=== PATIENT | male | born 1965 | race Caucasian/White ===

== ENCOUNTER 2022-04-09 10:48 | Emergency (ER) | payer SELFPAY ==
[2022-04-09] MEDS ORDERED: amLODIPine 5 MG Tab PO ONE (11:29)
[2022-04-09] MEDS ORDERED: Lisinopril 10 MG Tab PO ONE (11:30)
[2022-04-09] MEDS ORDERED: cloNIDine 0.1 MG Tab PO ONE (12:39)
[2022-04-09 12:48] LABS: POTASSIUM,K 4.1 mmol/L (3.5-5.1)
[2022-04-09 13:24] LABS: CARBON DIOXIDE,CO2 27.9 mmol/L (21.0-32.0)
== END 2022-04-09 14:07 | disposition home or self-care (01) ==
LOC: MW.ED 10:48
DX: E11.65 Type 2 diabetes mellitus with hyperglycemia (principal); I10 Essential (primary) hypertension; E78.00 Pure hypercholesterolemia, unspecified; F17.210 Nicotine dependence, cigarettes, uncomplicated; Z88.0 Allergy status to penicillin; Z91.040 Latex allergy status; Z79.82 Long term (current) use of aspirin; Z79.899 Other long term (current) drug therapy; Z79.84 Long term (current) use of oral hypoglycemic drugs
CPT/HCPCS: 36415; 80053; 81001; 83735; 84484; 85025; 93005; 99283; A9270

== ENCOUNTER 2024-03-23 11:49 | Emergency (ER) | payer SELFPAY ==
[2024-03-23 12:16] LABS: HEMATOCRIT 46.4 % (42.0-52.0); HEMOGLOBIN 16.3 g/dL (14.0-18.0); LYMPHOCYTES PERCENT AUTO 25.4 % (24.0-44.0); MEAN CORPUSCULAR HEMOGLOBIN 30.2 pg (28.0-32.0); MEAN CORPUSCULAR HGB CONC 35.1 g/dL (32.0-36.0); MEAN CORPUSCULAR VOLUME 85.9 fL (83.0-99.0); MEAN PLATELET VOLUME 9.5 fL (9.4-12.4); NEUTROPHILS PERCENT AUTO 64.7 % (41.0-71.0); PLATELET COUNT,PLT 247 K/uL (150-400); WHITE BLOOD CELL COUNT,WBC 9.34 K/uL (3.9-11.3)
[2024-03-23 12:17] LABS: BASOPHILS ABSOLUTE AUTO 0.06 K/uL (0.00-0.20); BASOPHILS PERCENT AUTO 0.6 % (0.0-1.0); EOSINOPHILS ABSOLUTE AUTO 0.24 K/uL (0.00-0.45); EOSINOPHILS PERCENT AUTO 2.6 % (0.0-6.0); IMMATURE GRAN ABSOLUTE AUTO 0.05 K/uL (0.00-0.05); IMMATURE GRAN PERCENT AUTO 0.5 % (0.0-0.4); LYMPHOCYTES ABSOLUTE AUTO 2.37 K/uL (1.00-4.80); MONOCYTES ABSOLUTE AUTO 0.58 K/uL (0.00-0.80); MONOCYTES PERCENT AUTO 6.2 % (0.0-8.0); NEUTROPHILS ABSOLUTE AUTO 6.04 K/uL (1.80-7.70)
[2024-03-23] MEDS: Labetalol 100 MG/20 ML MDV IVPUSH STA (12:26)
[2024-03-23 12:35] LABS: APPEARANCE,URINE CLEAR; BILIRUBIN,URINE NEGATIVE (NEGATIVE); COLOR,URINE YELLOW; GLUCOSE,URINE 100 mg/dL (NEGATIVE); KETONES,URINE NEGATIVE (NEGATIVE); LEUKOCYTE ESTERASE,URINE NEGATIVE (NEGATIVE); NITRITE,URINE NEGATIVE (NEGATIVE); OCCULT BLOOD,URINE NEGATIVE (NEGATIVE); PH,URINE 5.5 (5.0-8.0); PROTEIN,URINE 100 mg/dL (NEGATIVE); UROBILINOGEN,URINE 0.2 EU/dL (<2.0)
[2024-03-23 12:49] LABS: INR 0.98 (0.86-1.11)
[2024-03-23 12:50] LABS: A/G RATIO 1.1 (0.9-1.6); ALBUMIN 3.9 g/dL (3.4-5.0); BILIRUBIN TOTAL 0.7 mg/dL (0.2-1.0); CALCIUM 9.4 mg/dL (8.5-10.1); CARBON DIOXIDE,CO2 31.1 mmol/L (21.0-32.0); CREATININE 1.2 mg/dL (0.8-1.3); EST CRCL DRUG DOSING (CG) 68.74 mL/min; POTASSIUM,K 3.8 mmol/L (3.5-5.1); PROTEIN TOTAL,TP 7.6 g/dL (6.4-8.2)
[2024-03-23 12:55] LABS: MAGNESIUM 1.8 mg/dL (1.8-2.4)
[2024-03-23 13:18] LABS: BACTERIA,URINE RARE (NEGATIVE); EPITHELIAL CELLS,URINE RARE (NONE-FEW); RBC,URINE 0-2 (0-2/HPF); WBC,URINE 0-2 (0-5/HPF)
[2024-03-23 13:20] LABS: HEMOGLOBIN A1C 9.2 %
[2024-03-23] MEDS: Lisinopril 10 MG Tab PO STA (13:52)
== END 2024-03-23 15:17 | disposition left against medical advice (07) ==
LOC: MW.ED 11:49
DX: I10 Essential (primary) hypertension (principal); E11.9 Type 2 diabetes mellitus without complications; Z75.8 Other problems related to medical facilities and other health care; Z86.16 Personal history of COVID-19; Z91.040 Latex allergy status; Z88.0 Allergy status to penicillin
CPT/HCPCS: 36415; 70450; 71046; 80053; 81001; 83036; 83690; 83735; 84484; 85025; 85610; 93005; 96374; 99284; A9270; J1920; 93010

== ENCOUNTER 2024-03-23 17:03 | Observation (INO) | payer SELFPAY ==
[2024-03-23] MEDS ORDERED: Sodium Chloride 0.9% 10 ML Syringe FLUSH PRN (17:57)
[2024-03-23] MEDS ORDERED: Sodium Chloride 0.9% 2.5 ML Syringe FLUSH PRN (17:57)
[2024-03-23 18:26] LABS: BASOPHILS ABSOLUTE AUTO 0.06 K/uL (0.00-0.20); BASOPHILS PERCENT AUTO 0.6 % (0.0-1.0); EOSINOPHILS ABSOLUTE AUTO 0.18 K/uL (0.00-0.45); EOSINOPHILS PERCENT AUTO 1.8 % (0.0-6.0); HEMATOCRIT 42.8 % (42.0-52.0); HEMOGLOBIN 15.4 g/dL (14.0-18.0); IMMATURE GRAN ABSOLUTE AUTO 0.04 K/uL (0.00-0.05); IMMATURE GRAN PERCENT AUTO 0.4 % (0.0-0.4); LYMPHOCYTES ABSOLUTE AUTO 2.13 K/uL (1.00-4.80); LYMPHOCYTES PERCENT AUTO 21.2 % (24.0-44.0); MEAN CORPUSCULAR HEMOGLOBIN 30.6 pg (28.0-32.0); MEAN CORPUSCULAR VOLUME 85.1 fL (83.0-99.0); MEAN PLATELET VOLUME 9.8 fL (9.4-12.4); NEUTROPHILS ABSOLUTE AUTO 7.02 K/uL (1.80-7.70); PLATELET COUNT,PLT 254 K/uL (150-400); RED BLOOD CELL COUNT 5.03 M/uL (4.52-5.90); WHITE BLOOD CELL COUNT,WBC 10.03 K/uL (3.9-11.3)
[2024-03-23] MEDS ORDERED: Bisacodyl 5 MG Tab PO PRN (18:40)
[2024-03-23] MEDS ORDERED: Ondansetron 4 MG Tab.DIS PO PRN (18:40)
[2024-03-23] MEDS ORDERED: Acetaminophen 325 MG Tab PO PRN (18:40)
[2024-03-23] MEDS ORDERED: Polyethylene Glycol 3350 Powder 17 GM Packet PO PRN (18:40)
[2024-03-23] MEDS ORDERED: Glucagon,Human Recombinant 1 MG Vial IM PRN (18:44)
[2024-03-23] MEDS ORDERED: 50% Dextrose in Water 50 ML Syringe IVPUSH PRN (18:44)
[2024-03-23] MEDS ORDERED: Labetalol 100 MG/20 ML MDV IVPUSH SCH (18:45)
[2024-03-23 18:55] LABS: CARBON DIOXIDE,CO2 28.2 mmol/L (21.0-32.0); CREATININE 1.2 mg/dL (0.8-1.3); EST CRCL DRUG DOSING (CG) 68.74 mL/min; POTASSIUM,K 3.6 mmol/L (3.5-5.1)
[2024-03-23] MEDS: Acetaminophen 500 MG Tab PO STA (19:23)
[2024-03-23] MEDS: Ibuprofen 800 MG Tab PO STA (20:31)
[2024-03-23] MEDS: Enoxaparin 40 MG/0.4 ML Syringe SUBCUT SCH (20:32)
[2024-03-23 21:24] LABS: CHOLESTEROL HDL 43 mg/dL (40-60); CHOLESTEROL TOTAL 297 mg/dL (50-200); TSH ULTRASENSITIVE 1.53 uIU/mL (0.36-3.74)
[2024-03-23 21:26] LABS: TRIGLYCERIDES 560 mg/dL (0-200)
[2024-03-23] MEDS: Labetalol 100 MG/20 ML MDV IVPUSH PRN (21:27)
[2024-03-23] MEDS: Insulin Aspart 100 Units/ML 3 ML Pen SUBCUT SCH (21:27)
[2024-03-23] MEDS: Lisinopril 10 MG Tab PO ONE (21:27)
[2024-03-24] MEDS: Melatonin 3 MG Tab PO PRN (00:04)
[2024-03-24 05:56] LABS: BASOPHILS ABSOLUTE AUTO 0.03 K/uL (0.00-0.20); BASOPHILS PERCENT AUTO 0.4 % (0.0-1.0); EOSINOPHILS ABSOLUTE AUTO 0.22 K/uL (0.00-0.45); EOSINOPHILS PERCENT AUTO 2.7 % (0.0-6.0); HEMATOCRIT 38.7 % (42.0-52.0); HEMOGLOBIN 13.5 g/dL (14.0-18.0); IMMATURE GRAN ABSOLUTE AUTO 0.05 K/uL (0.00-0.05); IMMATURE GRAN PERCENT AUTO 0.6 % (0.0-0.4); LYMPHOCYTES PERCENT AUTO 42.2 % (24.0-44.0); MEAN CORPUSCULAR HEMOGLOBIN 30.3 pg (28.0-32.0); MEAN CORPUSCULAR HGB CONC 34.9 g/dL (32.0-36.0); MEAN CORPUSCULAR VOLUME 86.8 fL (83.0-99.0); MEAN PLATELET VOLUME 9.9 fL (9.4-12.4); MONOCYTES ABSOLUTE AUTO 0.56 K/uL (0.00-0.80); NEUTROPHILS ABSOLUTE AUTO 3.79 K/uL (1.80-7.70); NEUTROPHILS PERCENT AUTO 47.1 % (41.0-71.0); PLATELET COUNT,PLT 227 K/uL (150-400); RED BLOOD CELL COUNT 4.46 M/uL (4.52-5.90); WHITE BLOOD CELL COUNT,WBC 8.05 K/uL (3.9-11.3)
[2024-03-24 06:24] LABS: A/G RATIO 0.9 (0.9-1.6); BILIRUBIN TOTAL 0.5 mg/dL (0.2-1.0); CALCIUM 8.6 mg/dL (8.5-10.1); CARBON DIOXIDE,CO2 30.8 mmol/L (21.0-32.0); CREATININE 1.3 mg/dL (0.8-1.3); EST CRCL DRUG DOSING (CG) 63.45 mL/min; POTASSIUM,K 3.5 mmol/L (3.5-5.1); PROTEIN TOTAL,TP 6.2 g/dL (6.4-8.2)
[2024-03-24] MEDS ORDERED: Insulin Aspart 100 Units/ML 3 ML Pen SUBCUT SCH (07:30)
[2024-03-24] MEDS: Lisinopril 10 MG Tab PO SCH (08:11)
[2024-03-24] MEDS ORDERED: Lisinopril 10 MG Tab PO SCH (09:00)
[2024-03-24] MEDS: atorvaSTATin 40 MG Tab PO SCH (09:44)
== END 2024-03-24 14:20 | disposition home or self-care (01) ==
LOC: MW.ED 17:03 → MW.MS 17:58
PROVIDERS: ADMIT Family Medicine; ATTEND Family Medicine
DX: I16.0 Hypertensive urgency (principal); E11.9 Type 2 diabetes mellitus without complications; I10 Essential (primary) hypertension; E78.00 Pure hypercholesterolemia, unspecified; F17.210 Nicotine dependence, cigarettes, uncomplicated; Z79.84 Long term (current) use of oral hypoglycemic drugs; Z79.899 Other long term (current) drug therapy; Z91.040 Latex allergy status; Z88.0 Allergy status to penicillin
CPT/HCPCS: 36415; 80048; 80053; 80061; 82947; 84443; 85025; 96372; 96374; 96376; 99284; A9270; G0378; J1650; J1815; J1920